=== PATIENT | male | born 1950 | race Caucasian/White ===

== ENCOUNTER → 2016-07-06 | Outpatient (CLI) | payer BC ==
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
== END | disposition home or self-care (01) ==
LOC: SLEEP 11:09
PROVIDERS: ATTEND Internal Medicine
DX: G47.33 Obstructive sleep apnea (adult) (pediatric) (principal); I48.92 Unspecified atrial flutter; I10 Essential (primary) hypertension; E78.5 Hyperlipidemia, unspecified; Z79.899 Other long term (current) drug therapy; E66.9 Obesity, unspecified; Z68.41 Body mass index [BMI] 40.0-44.9, adult

== ENCOUNTER 2016-07-07 16:45 | Emergency (ER) | payer BC, OTHER ==
[2016-07-07] MEDS ORDERED: DIPH,PERTUS(ACELL)TETVAC-LF 0.5 ML VIAL IM ONE (17:34)
[2016-07-07] MEDS ORDERED: AMOXIC-POT CLAV 875-125MG 1 EACH TAB PO STA (17:34)
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
[2016-07-07 17:55] VITALS: BP 139/93; PULSE 80; RESP 14; TEMP 98
== END 2016-07-07 18:16 | disposition home or self-care (01) ==
LOC: EC 16:45
DX: S51.851A Open bite of right forearm, initial encounter (principal); Z23 Encounter for immunization; Z88.2 Allergy status to sulfonamides; Z88.8 Allergy status to other drugs, medicaments and biological substances; Z79.82 Long term (current) use of aspirin; Z79.899 Other long term (current) drug therapy; W50.3XXA Accidental bite by another person, initial encounter; Y93.89 Activity, other specified
CPT/HCPCS: 90471; 90715; 99283

== ENCOUNTER → 2016-10-05 | Outpatient (CLI) | payer BC ==
--- NOTE | 2016-10-06 09:19 | PN ---
PROGRESS NOTE Date of Service: A 56-year-old gentleman has been followed in the Sleep Center for treatment of obstructive sleep apnea-hypopnea syndrome. Recently, patient had diagnostic sleep study and CPAP titration and I discussed results of sleep studies with patient in detail. He has extremely severe obstructive sleep apnea-hypopnea syndrome with oxygen desaturation to 61%. Presently, patient is on treatment with BiPAP and he was started on treatment with BiPAP with a pressure of 14/10, then he had difficulties with tolerating the pressure and pressure was decreased to 12/8 cm of water. I checked reading from his machine and it showed that the patient demonstrated 100% compliance with the treatment using daily it every night more than 4 hours. Average usage is 7 hours and 5 minutes. Apnea- hypopnea index by the reading for the last month showed 2.9 per hour, which is a totally normal range. [place] Sleepiness Scale today is 1. MEDICATIONS: Simvastatin, metoprolol, lisinopril, aspirin. PHYSICAL EXAM: Patient in no distress. BP 131/90, HR 88, RR 16, weight 249, temp 97.8. Oxygen saturation at room air 96%. HEART: S1-S2 irregularly irregular. ABDOMEN: Obese. LUNGS Clear to percussion and to auscultation. Good air exchange. No wheezing or rhonchi. EXTREMITIES No clubbing or cyanosis. ALLERGY AND IMMUNOLOGY CHIEF Awake, alert, and oriented X3. Cranial nerves 2 to 7 intact. There is no fasciculation or atrophy. noted. No focal deficits observed. IMPRESSION: 1. Severe obstructive sleep apnea-hypopnea syndrome, apnea-hypopnea index 54.5, with oxygen desaturation to 61% on control with BiPAP at 12/8 cm of water. Patient demonstrated 100% compliance with treatment benefiting from treatment. 2. Obesity. 3. Atrial flutter. 4. Hypertension. 5. Hyperlipidemia. 6. History of sepsis in the past. 7. Status post cardiac ablation procedure several times for flutter. PLAN: 1. Continue treatment with BiPAP every night for the whole night. 2. 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 3. Losing weight. 4. Sleep hygiene with regular time in bed for least 8 hours. 5. No driving if feeling sleepiness. Patient is aware about civil and criminal liability for unsafe driving. Thank you very much for allowing me participate in the management of your patient. Sincerely, Taco Diaz MD, PhD, FAASM Diplomat of [place] [employer] [place] [employer] Bowling Ball Mold Assembler of [facility] [place] JUSTINA / HENRIETTA: [id number] /
== END | disposition home or self-care (01) ==
LOC: SLEEP 13:20
PROVIDERS: ATTEND Internal Medicine
DX: G47.33 Obstructive sleep apnea (adult) (pediatric) (principal); E66.9 Obesity, unspecified; I48.92 Unspecified atrial flutter; I10 Essential (primary) hypertension; E78.5 Hyperlipidemia, unspecified; Z86.19 Personal history of other infectious and parasitic diseases; Z98.890 Other specified postprocedural states; Z79.899 Other long term (current) drug therapy; Z79.82 Long term (current) use of aspirin

== ENCOUNTER 2016-11-16 07:05 | Outpatient (CLI) | payer BC ==
--- NOTE | 2016-11-23 15:04 | SLS ---
SLEEP STUDY DATE OF SERVICE: 11/16/2016. PROCEDURE: Maintenance of wakefulness test date 11/16/2016. Maintenance of wakefulness test done for objective evaluation of patient alertness. 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 The patient has severe obstructive sleep apnea-hypopnea syndrome with apnea-hypopnea index 54.5. Maintenance of wakefulness test consisted from 4 trials by 40 minutes. The patient did not fall asleep on any trial. IMPRESSION: 1. Severe obstructive sleep apnea-hypopnea syndrome. The patient demonstrated good compliance with treatment. 2. Maintenance of wakefulness test showed normal alertness during the day. Patient did not fail on any trial. Passed the test. PLAN: 1. Continue treatment with BiPAP every night for the whole night. 2. I will see patient for followup visit to explain results of the test and recommendations. 3. 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 Thank you very much for allowing me to participate in management of your patient. Sincerely, Taco Diaz MD, PhD, FAASM Diplomat of [place] [employer] [place] Board of Internal Medicine Technologist Infectious Disease of [facility] [place] MMODL / ALECIAN: [id number] /
== END 2016-11-16 15:05 | disposition home or self-care (01) ==
LOC: SLEEP 07:05
PROVIDERS: ATTEND Internal Medicine
DX: G47.33 Obstructive sleep apnea (adult) (pediatric) (principal)
CPT/HCPCS: 80306; 95805

== ENCOUNTER → 2017-08-23 | Outpatient (CLI) | payer BC ==
--- NOTE | 2017-08-23 11:43 | SFUN ---
SLEEP CENTER FOLLOW UP NOTE DATE OF SERVICE: 08/23/2017. A 67-year-old gentleman who has been followed in Sleep Center for treatment of severe obstructive sleep apnea-hypopnea syndrome. The apnea-hypopnea index 54. 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 Patient continues to use his BiPAP equipment every night without any significant problems. No snoring with the machine. No symptoms of excessive daytime sleepiness. [place] Sleepiness Scale is 2. In November of 2016, patient had maintenance of wakefulness test and he passed the test with 4 trials. He did not fall asleep. He was on treatment with BiPAP at that time already. I checked BiPAP unit. BiPAP pressure is 12/8 cm of water. Usage is 100% of the time for the last month every 6.6 hours. For the last 6 months, usage is 7 hours per night and usage is 180 nights. Leak is 14 L/minute, which is acceptable. Apnea-hypopnea index reading for the last 6 months 1.3, last month 1.1. The patient has about the same weight 249 pounds today comparing with the weight when we did the titration. MEDICATIONS: Simvastatin, metoprolol, lisinopril, aspirin. PHYSICAL EXAM: Patient in no distress. BP 111/79, HR 87, RR 18. Height 5 feet 6 inches, weight 249, BMI 40.1, temp 97.4, oxygen saturation at room air 96%. OROPHARYNX: Moderately to extremely low position of soft palate. ABDOMEN: Obese. 1+ very minimal bilateral ankle edema. HEENT PERRLA, EOMI, evaluation of oropharynx showed tongue protrudes midline. Neck Supple, no JVD. Thyroid is not palpable. LUNGS Clear to percussion and to auscultation. Good air exchange. No wheezing or rhonchi. HEART S1, S2 regular. No murmurs, gallops, or rubs. EXTREMITIES No clubbing or cyanosis. DELIVERY ANALYST Awake, alert, and oriented X3. Cranial nerves 2 to 7 intact. There is no fasciculation or atrophy noted. No focal deficits observed. IMPRESSION: 1. Severe obstructive sleep apnea-hypopnea syndrome on full control with BiPAP 12/8 cm of water. Patient demonstrated 100% compliance with treatment. I checked compliance for last 6 months. Average usage is 7 hours per night. Normal respiration on BiPAP. No symptoms of excessive daytime sleepiness. Half a year ago, patient passed maintenance of wakefulness test. 2. Obesity. 3. Hypertension. 4. Hyperlipidemia. 5. History of sepsis in the past. 6. Status post cardiac ablation several times for flutter in the past, this is normal. PLAN: 1. Patient will continue to use BiPAP equipment every night for the whole night. 2. Patient will continue followups with ditch inspector. 3. Sleep hygiene with regular time in bed for at least 7.5 - 8 hours. 4. 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 No driving if feeling sleepiness. Patient is aware about civil and criminal liability for unsafe driving. Promise to follow up recommendations. 5. Losing weight. 6. Prescription for all necessary BiPAP supplies, including mask, tube. Sincerely, Taco Diaz MD, PhD, FAASM Diplomat of [place] [employer] [place] [employer] Medicine Customer Account Manager of [facility] [place] MMODL / ALECIAN: [id number] /
== END | disposition home or self-care (01) ==
LOC: SLEEP 09:49
PROVIDERS: ATTEND Internal Medicine
DX: G47.33 Obstructive sleep apnea (adult) (pediatric) (principal); I10 Essential (primary) hypertension; E78.5 Hyperlipidemia, unspecified; E66.9 Obesity, unspecified; Z68.41 Body mass index [BMI] 40.0-44.9, adult; Z86.19 Personal history of other infectious and parasitic diseases; Z79.899 Other long term (current) drug therapy; Z79.82 Long term (current) use of aspirin; Z98.890 Other specified postprocedural states

== ENCOUNTER → 2019-04-17 | Outpatient (CLI) | payer BC, MEDICARE ==
--- NOTE | 2019-04-17 12:01 | SFUN ---
SLEEP CENTER FOLLOW UP NOTE DATE OF SERVICE: 04/17/2019 This is a 68-year-old gentleman who has been followed in Sleep Center for treatment of obstructive sleep apnea-hypopnea syndrome. The patient continued to have his equipment every night for the whole night, getting all his supplies in time. No snoring with the machine. 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 No sleepiness during the day. [place] Sleepiness Scale today is 1. The patient lost weight from 260 pounds last year to 221.6 pounds now. I checked his BiPAP unit. BiPAP pressure 12/8 cm of water. Usage is 100% of nights. The patient used 365 out of 365 nights for the last year and 337 nights more than 4 hours with average use of 6 hours per night. Leak is 25 L/minute, which is acceptable. Apnea-hypopnea index is only 1.2, which is normal. MEDICATIONS: Flomax, , simvastatin, metoprolol, lisinopril. PHYSICAL EXAMINATION: During physical exam, patient in no distress. VITAL SIGNS: BP 116/73, HR 88, RR 16, height 5 feet 6-1/4 inches, weight 221.6, body mass index 35.4, temperature 97.0, oxygen saturation at room air 95% HEENT: PERRLA, EOMI. Oropharynx low position of soft palate, Mallampati 3. NECK: Supple, no JVD. Thyroid is not palpable. LUNGS: Clear to percussion and to auscultation. Good air exchange. No wheezing or rhonchi. HEART: S1, S2 with some irregularities. ABDOMEN: Slightly obese. EXTREMITIES: No clubbing or cyanosis. FOOD AND BEVERAGE INTERN: Awake, alert, and oriented X3. Cranial nerves 2 to 7 intact. There is no fasciculation or atrophy. noted. No focal deficits observed. IMPRESSION: 1. Severe obstructive sleep apnea-hypopnea syndrome with apnea-hypopnea index 54. The patient demonstrated 100% compliance with treatment benefitting from treatment, normal respiration on treatment with BiPAP. No symptoms of excessive daytime sleepiness. 2. Obesity, patient lost about 40 pounds since previous visit. 3. Hypertension. 4. Hyperlipidemia. 5. Status post cardiac ablation several times for atrial flutter. 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 PLAN: 1. Patient will continue to use BiPAP equipment every night for the whole night. 2. Continue losing weight. 3. Sleep hygiene with regular time in bed 7-1/2 and 8 hours. 4. Precautions related to driving. No driving if feeling sleepiness. Patient is aware about civil and criminal liability for unsafe driving. 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 Thank you very much for allowing me to participate in management of your patient. Sincerely, Taco Diaz MD, PhD, FAASM Diplomat of [place] [employer] Specialties [employer] Board of Internal Medicine Tone Regulator of [facility] [place] MMODL / ALECIAN: [id number] / DOT
== END | disposition home or self-care (01) ==
LOC: SLEEP 10:37
PROVIDERS: ATTEND Internal Medicine
DX: G47.33 Obstructive sleep apnea (adult) (pediatric) (principal); E66.9 Obesity, unspecified; I10 Essential (primary) hypertension; E78.5 Hyperlipidemia, unspecified; Z98.890 Other specified postprocedural states; Z99.89 Dependence on other enabling machines and devices; Z68.35 Body mass index [BMI] 35.0-35.9, adult; Z79.899 Other long term (current) drug therapy

== ENCOUNTER → 2019-08-04 | Outpatient (CLI) | payer BC, MEDICARE ==
[2019-08-04 18:13] LABS: African American GFR (CKD) 59.8 (60.0-200.0); Anion Gap 7.4 mmol/L (4.00-12.00); BUN/Creat Ratio 23.57 Ratio (12.00-20.00); Calcium 9.4 mg/dL (8.7-10.3); Carbon Dioxide 23.6 mmol/L (21.6-31.8); Chol/HDL Ratio 3.08; Non-African American GFR(CKD) 51.6 (60.0-200.0); Potassium 4.7 mmol/L (3.5-5.5)
== END | disposition home or self-care (01) ==
LOC: LABWHC1 09:35
PROVIDERS: ATTEND Physician Assistant
DX: I10 Essential (primary) hypertension (principal); E78.2 Mixed hyperlipidemia
CPT/HCPCS: 36415; 80048; 80061

== ENCOUNTER → 2019-11-27 | Outpatient (CLI) | payer MEDICARE, BC ==
--- NOTE | 2019-11-27 16:05 | SFUN ---
SLEEP CENTER FOLLOW UP NOTE DATE OF SERVICE: 11/27/2019 A 69-year-old gentleman who has been followed in the Sleep Center for treatment of obstructive sleep apnea-hypopnea syndrome. The patient continues to use his BiPAP equipment every night for the whole night. Feels well during the day. Does not feel sleepiness. [place] Sleepiness Scale is 1. Sometimes he has leak from his nasal pillow mask. He is using a medium size. May feel some discomfort on the left side. MEDICATIONS: [QAMARKER], simvastatin, lisinopril, metoprolol, Flomax, Xarelto. Patient does not have dosage of medication. I discussed with him the necessity to recheck all dosage of medications following Medicare requirements. PHYSICAL EXAM: Patient in no distress, BP 125/70, HR 86, RR 16, height 5 feet 6-1/2 inches, weight 224, BMI 35.6, temperature 97.7, oxygen saturation from 96% oropharynx low position of soft palate. Mallampati III. ABDOMEN: Obese. NECK: Supple, no JVD. Thyroid is not palpable. LUNGS: Clear to percussion and to auscultation. Good air exchange. No wheezing or rhonchi. HEART: S1, S2 regular. No murmurs, gallops, or rubs. EXTREMITIES: No clubbing or cyanosis. FEED PREPARATION OPERATOR: Awake, alert, and oriented X3. Cranial nerves 2 to 7 intact. There is no fasciculation or atrophy. noted. No focal deficits observed. I checked the patient BiPAP unit, pressure 12/8 cm of water, usage 30/30 nights for more than 4 hours. Average usage is 6.3 hours per night, which is great compliance. Leak is 28 L/minutes which is slightly high. Apnea-hypopnea index from the 1.0, which is perfect. IMPRESSION: 1. Obstructive sleep apnea-hypopnea syndrome. Patient demonstrated 100% compliance with treatment, benefitting from treatment. No symptoms of excessive daytime sleepiness. Normal respiration on CPAP. 2. Slight leak from CPAP, nasal pillow mask. The patient should replace his nasal pillow every month. 3. Obesity. 4. Hypertension. 5. Hyperlipidemia. 6. Status post cardiac ablation several times for atrial flutter. 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 Sleep hygiene with regular time in bed for at least 7-1/2 to 8 hours. 2. Extreme precautions related to driving. No driving if feeling sleepiness. Patient is aware about civil and criminal liability for unsafe driving. 3. Patient may use AYR gel through to the nostrils with the nasal pillows. Thank you very much for allowing me to participate in the management of your patient. Sincerely, Taco Diaz MD, PhD, FAASM Diplomat of [place] [employer] Specialties [place] Board of Internal Medicine Social Services Aide of [facility] [place] MMODL / ALECIAN: [id number] /
== END | disposition home or self-care (01) ==
LOC: SLEEP 10:56
PROVIDERS: ATTEND Internal Medicine
DX: G47.33 Obstructive sleep apnea (adult) (pediatric) (principal); E66.9 Obesity, unspecified; I10 Essential (primary) hypertension; E78.5 Hyperlipidemia, unspecified; Z86.79 Personal history of other diseases of the circulatory system; Z99.89 Dependence on other enabling machines and devices

== ENCOUNTER → 2020-07-22 | Outpatient (CLI) | payer MEDICARE, BC ==
--- NOTE | 2020-07-22 23:31 | SFUN ---
SLEEP CENTER FOLLOW UP NOTE DATE OF SERVICE: 07/22/2020 70-year-old gentleman has been followed in Sleep Center for treatment of obstructive sleep apnea-hypopnea syndrome. Patient continued to use his equipment every night for the whole night, he feels well with the machine. He sleeps well and feels well during the day. Denied any significant excessive daytime sleepiness. [place] Sleepiness Scale today is 1. I checked the patient BiPAP unit. Pressure is 12/8 cm of water. Usage is every night and / nights for more than 4 hours. Leak is 22 L/minute which is borderline, but apnea-hypopnea index is totally normal only 1.2. MEDICATIONS: 7 mg once a day, tamsulosin 0.4 mg once a day, lisinopril 10 mg once a day, simvastatin 40 mg once a day, metoprolol 50 mg once a day. Xarelto 20 mg once a day. Metformin 1000 mg a day, Basaglar insulin 22 units. PHYSICAL EXAMINATION: GENERAL: Patient in no distress. BP 123/81, HR 90, RR 15, height 5 feet 6 inches, weight 236.0, temperature 98.4, oxygen saturation at room air 97%. Oropharynx: Low position of soft palate, Mallampati 3. NECK: Supple, no JVD. Thyroid is not palpable. LUNGS: Clear to percussion and to auscultation. Good air exchange. No wheezing or rhonchi. HEART: S1, S2 regular. No murmurs, gallops, or rubs. ABDOMEN: Obese. Soft and nontender. Bowel sounds are present. No organomegaly appreciated. EXTREMITIES: No clubbing or cyanosis. PROOF SORTER: Awake, alert, and oriented X3. Cranial nerves 2 to 7 intact. There is no fasciculation or atrophy. noted. No focal deficits observed. IMPRESSION: 1. Obstructive sleep apnea-hypopnea syndrome. Patient demonstrates 100% compliance with treatment and benefitting from treatment. Normal respiration on CPAP. 2. Obesity. 3. Hypertension. 4. Hyperlipidemia. 5. Status post cardiac ablations several times for atrial flutter. 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 Patient will continue to use PAP equipment every night for the whole night. 2. Sleep hygiene with regular time in bed for at least 7-1/2 to 8 hours. 3. Precautions related to driving. No driving if feeling sleepiness. Patient is aware about civil and criminal liability for unsafe driving. He promised to follow all recommendations. 4. I will maintain all necessary prescription for PAP supplies including mask, tube, filters. 5. Watching weight. 6. Follow-up visit in 6 months or earlier if patient has any problems. Thank you very much for allowing me to participate in management of your patient. Sincerely, Taco Diaz MD, PhD, FAASM Diplomat of [place] [employer] Special[employer] Board of Internal Medicine Plant Maintenance Mechanic of [facility] [place] MMODL / ALECIAN: [id number] /
== END ==
LOC: SLEEP 10:40
PROVIDERS: ATTEND Internal Medicine
DX: G47.33 Obstructive sleep apnea (adult) (pediatric) (principal); E66.9 Obesity, unspecified; I10 Essential (primary) hypertension; E78.5 Hyperlipidemia, unspecified; Z98.890 Other specified postprocedural states; Z99.89 Dependence on other enabling machines and devices; Z88.2 Allergy status to sulfonamides; Z88.8 Allergy status to other drugs, medicaments and biological substances

== ENCOUNTER → 2021-01-19 | Outpatient (CLI) | payer MEDICARE, BC ==
--- NOTE | 2021-01-19 22:23 | SFUN ---
SLEEP CENTER FOLLOW UP NOTE DATE OF SERVICE: 01/19/2021 70-year-old gentleman has been followed in Sleep Center for treatment of obstructive sleep apnea-hypopnea syndrome. The patient continues to use his BiPAP equipment every night for the whole night. Sleeps well with the machine. Gets his supplies in time. No sleepiness during the day. [place] Sleepiness Scale is 4. I checked his BiPAP unit. Pressure is 12/8 cm of water. Usage is 100% of nights more than 4 hours, average 6.3 hours per night. Leak is slightly increased 32 L/minute. Apnea-hypopnea index absolutely perfect 0.9. The patient feels that his pressure sometimes a little bit too high for him. MEDICATIONS: Tamsulosin 0.4 mg once a day, lisinopril 10 mg once a day, simvastatin 40 mg once a day, metoprolol 50 mg once a day. Xarelto 20 mg once a day. Metformin 1000 mg a day. Insulin Basaglar 22 units. PHYSICAL EXAMINATION: GENERAL: Patient in no distress. BP 131/88, HR 79, RR 15, height 5 feet 6 inches, weight 237.6. Oxygen saturation at room air 97%, temperature 97.4, body mass index 38.6. Oropharynx: Low position of soft palate, Mallampati 3. NECK: Supple, no JVD. Thyroid is not palpable. LUNGS: Clear to percussion and to auscultation. Good air exchange. No wheezing or rhonchi. HEART: S1, S2 regular. No murmurs, gallops, or rubs. ABDOMEN: Obese. Soft and nontender. Bowel sounds are present. No organomegaly appreciated. EXTREMITIES: No clubbing or cyanosis. ILLUSTRATOR SET: Awake, alert, and oriented X3. Cranial nerves 2 to 7 intact. There is no fasciculation or atrophy. noted. No focal deficits observed. IMPRESSION: 1. Obstructive sleep apnea-hypopnea syndrome, patient demonstrated 100% compliance with treatment. Normal respiration on BiPAP, benefitting from treatment. 2. Hypertension. 3. Hyperlipidemia. 4. Obesity. 5. Status post cardiac ablation several times for atrial flutter. 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 Slightly decreased pressure in BiPAP unit to 11/7 cm of water. 2. Patient will continue to use PAP equipment every night for the whole night. 3. Sleep hygiene with regular time in bed for at least 7-1/2 to 8 hours. 4. Precautions related to driving. No driving if feeling sleepiness. 5. I will maintain all necessary prescription for PAP supplies including mask, tube, filters. 6. Watching weight. 7. Follow-up visit in 6 months or earlier if patient has any problems. Thank you very much for allowing me to participate in management of your patient. Sincerely, Taco Diaz MD, PhD, FAASM Diplomat of [employer] Sleep Medicine Board of [employer] [facility] [place] MMODL / ALECIAN: [id number] /
== END | disposition home or self-care (01) ==
LOC: SLEEP 10:45
PROVIDERS: ATTEND Internal Medicine
DX: G47.33 Obstructive sleep apnea (adult) (pediatric) (principal); I10 Essential (primary) hypertension; E78.5 Hyperlipidemia, unspecified; E66.9 Obesity, unspecified; Z68.38 Body mass index [BMI] 38.0-38.9, adult

== ENCOUNTER → 2022-01-18 | Outpatient (CLI) | payer MEDICARE, BC ==
--- NOTE | 2022-01-18 12:06 | P.PN ---
Subjective DATE: 01/18/2022 FOLLOW UP VISIT. Patient with obstructive sleep apnea hypopnea syndrome return to sleep center for follow-up visit. Information from previous visit have been reviewed. Patient is using BPAP equipment every night for the whole night, getting BPAP supplies in time. The patient does not have significant problems with the mask, BPAP unit and humidification. [place] sleepiness scale is 1, which is perfect. I checked information from BPAP unit. BPAP unit pressure 11/7 cm H2O. Usage is 100 % for more then 4 hours, average 6 hours per night. Leak is 13.3 l/m, which is in acceptable range. Apnea Hypopnea Index is 0.7, which is perfect. MEDICATIONS:1. Lisinopril 10 mg once a day 2. Metoprolol 50 mg once a day 3. Rosuvastatin 20 mg once a day 4. Xarelto 20 mg once a day 5. Rybelsus 14 mg once a day During physical exam: GENERAL: A pleasant patient without any distress. VITAL SIGNS: BP 117/78, HR 70, RR 16 , weight 238, height 5 foot 6 inches, body mass index 38.4 temperature 97.7, oxygen saturation at room air 96 % . HEENT: PERRLA, EOMI.low position of soft palate, Mallapati 3 . NECK: Supple. No JVD. LUNGS: Clear to percussion and to auscultation. Good air exchange. No wheezing or rhonchi. HEART: S1, S2 regular. ABDOMEN: Soft and nontender. Obese EXTREMITIES: No clubbing or cyanosis. 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 No focal deficit. Impressions: 1. Obstructive sleep apnea-hypopnea syndrome. Patient demonstrated great compliance with treatment, benefiting from treatment. 2. Obesity body mass index 38.4. 3. Hypertension. 4. Hyperlipidemia. 5. 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 Continue using PAP equipment every night for the whole night. 2. To change air filter at least 1-2 times per month. 3. PAP unit should stay lower then position of the head. 4. Advised patient to remove all remaining water from humidifier canister daily and make it dry after each usage. Refill canister with fresh distilled water before each usage. Presently patient prefers not to use heated humidity. 5. Sleep hygiene with regular time in bed for at least 8 hours. 6. Precautions related to driving. No driving if feel any sleepiness. 7. I will maintain prescription for PAP supplies including mask, tube, filters. 8. Follow up visit in 6 months or earlier if patient has any problems. 9. Watching and losing weight. Thank you very much for allowing me to participate in the management of your patient. Taco Diaz MD, PhD, FAASM. Diplomat of [employer], Sleep Medicine Board by [employer] Quality Control Coordinator of [facility] [place]
== END ==
LOC: SLEEP 10:47
PROVIDERS: ATTEND Internal Medicine
DX: G47.33 Obstructive sleep apnea (adult) (pediatric) (principal); Z99.89 Dependence on other enabling machines and devices; E66.9 Obesity, unspecified; Z68.38 Body mass index [BMI] 38.0-38.9, adult; I10 Essential (primary) hypertension; E78.5 Hyperlipidemia, unspecified; Z98.890 Other specified postprocedural states; Z88.2 Allergy status to sulfonamides; Z88.8 Allergy status to other drugs, medicaments and biological substances
CPT/HCPCS: 99212

== ENCOUNTER → 2022-07-26 | Outpatient (CLI) | payer MEDICARE, BC ==
--- NOTE | 2022-07-26 10:59 | P.PN ---
Subjective DATE: 07/26/2022 FOLLOW UP VISIT. Patient with obstructive sleep apnea hypopnea syndrome return to sleep center for follow-up visit. Information from previous visit have been reviewed. Patient is using PAP equipment every night for the whole night, getting PAP supplies in time. The patient does not have significant problems with the mask, PAP unit and humidification. [place] sleepiness scale is 2, which is normal. I checked information from BPAP unit. BPAP unit pressure is 11/7 cm H2O. Usage is 100 % for more then 4 hours, average 6.5 hours per night. Leak is 21.6 l/m, which is in acceptable range. Apnea Hypopnea Index is 0.8, which is normal. MEDICATIONS:1. Lisinopril 10 mg in the morning, 5 mg at night 2. Metoprolol 50 mg once a day 3. Xarelto 20 mg once a day 4. Rosuvastatin 20 mg once a day 5. Rubelsus 40 mg once a day 6. Insulin During physical exam: GENERAL: A pleasant patient without any distress. VITAL SIGNS: BP 125/81, HR 82, RR 16, weight 238, temperature 97.7, oxygen saturation at room air 97 % . HEENT: PERRLA, EOMI.low position of soft palate, Mallapati 3 . NECK: Supple. No JVD. LUNGS: Clear to percussion and to auscultation. Good air exchange. No wheezing or rhonchi. HEART: S1, S2 . Irregularly irregular. ABDOMEN: Soft and nontender. Slightly obese EXTREMITIES: No clubbing or cyanosis. SKIN PILER: Awake, alert, and oriented x3. No focal deficit. Impressions: 1. Obstructive sleep apnea-hypopnea syndrome. Patient demonstrated great compliance with treatment, benefiting from treatment. 2. Diabetes mellitus, hemoglobin A1c according to patient 6.9. 3. Hypertension. 4. Obesity, BMI in the range of 38, weight is the same as during previous visit. 5. 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 Irregular rhythm at the present time possibly atrial fibrillation. 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 Continue using PAP equipment every night for the whole night. 2. To change air filter at least 1-2 times per month. 3. PAP unit should stay lower then position of the head. 4. Advised patient to remove all remaining water from humidifier canister daily and make it dry after each usage. Refill canister with fresh distilled water before each usage. 5. Sleep hygiene with regular time in bed for at least 8 hours. 6. Precautions related to driving. No driving if feel any sleepiness. Patient is aware about civil and criminal liability for unsafe driving. 7. I will maintain prescription for PAP supplies including mask, tube, filters. 8. Watching and losing weight. 9. Follow up visit in 6 months or earlier if patient has any problems. Thank you very much for allowing me to participate in the management of your patient. Taco Diaz MD, PhD, FAASM. Diplomat of [employer], Sleep Medicine Board by [employer] Seismometer Operator of [facility] [place]
== END ==
LOC: 3 N SLEEP 10:30
PROVIDERS: ATTEND Internal Medicine
DX: G47.33 Obstructive sleep apnea (adult) (pediatric) (principal); E11.9 Type 2 diabetes mellitus without complications; I10 Essential (primary) hypertension; E66.9 Obesity, unspecified; Z68.38 Body mass index [BMI] 38.0-38.9, adult; Z79.4 Long term (current) use of insulin; Z79.899 Other long term (current) drug therapy; Z86.79 Personal history of other diseases of the circulatory system; Z99.89 Dependence on other enabling machines and devices; Z88.2 Allergy status to sulfonamides; Z88.8 Allergy status to other drugs, medicaments and biological substances
CPT/HCPCS: 99212

== ENCOUNTER → 2024-04-24 | Outpatient (CLI) | payer MEDICARE ==
[2024-04-24 11:57] VITALS: BP 111/79; PULSE 72; RESP 16; TEMP 97.2
--- NOTE | 2024-04-24 12:23 | P.PROGSL ---
Subjective DATE: 04/24/2024 FOLLOW UP VISIT. Patient with obstructive sleep apnea hypopnea syndrome return to sleep center for follow-up visit. Information from previous visit have been reviewed. Patient is using PAP equipment every night for the whole night, getting PAP supplies in time. The patient does not have significant problems with the mask, PAP unit and humidification. [place] sleepiness scale is 1. I checked information from PAP unit. BPAP unit pressure 11/7 cm H2O. Usage is 100% for more then 4 hours, average 7 hours per night. Leak is 22 l/m, which is in acceptable range. Apnea Hypopnea Index is 1.0, which is normal. MEDICATIONS have been reviewed, please see below. During physical exam: GENERAL: A pleasant patient without any distress. VITAL SIGNS: Please see below, weight is 209.4 lbs. HEENT: PERRLA, EOMI.low position of soft palate, Mallapati 3. NECK: Supple. No JVD. LUNGS: Clear to percussion and to auscultation. Good air exchange. No wheezing or rhonchi. HEART: S1, S2 regular. ABDOMEN: Soft and nontender.[] EXTREMITIES: No clubbing or cyanosis. UNIX ADMINISTRATOR: Awake, alert, and oriented x3. No focal deficit. Impressions: 1. Obstructive sleep apnea-hypopnea syndrome. Patient demonstrated great compliance with treatment, benefiting from treatment. 2. Mild obesity, patient lost 29 pounds comparing with previous visit. 3. Hypertension. 4. Diabetes mellitus, hemoglobin A1c in the range of 7.6 according to patient. 5. History of atrial flutter, status post cardiac ablation. 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 Continue using PAP equipment every night for the whole night. 2. Sleep hygiene with regular time in bed for at least 7.5-8 hours 3. PAP unit should stay lower then position of the head. 4. Advised patient to remove all remaining water from humidifier canister daily and make it dry after each usage. Refill canister with fresh distilled water before each usage. 5. Watching and losing weight. 6. Precautions related to driving. No driving if feel any sleepiness. 7. I will maintain prescription for PAP supplies including mask, tube, filters. 8. Follow up visit in 8 months or earlier if patient has any problems. Thank you very much for allowing me to participate in the management of your patient. Taco Diaz MD, PhD, FAASM. Diplomat of [place] [employer], Sleep Medicine Board by [employer] Partridge Farmer of [facility] [place] Objective - Vital Signs Vital Signs: Vital Signs Temp 97.2 F L 04/24/24 11:56 Pulse 72 04/24/24 11:56 Resp 16 04/24/24 11:56 BP 111/79 04/24/24 11:56 Pulse Ox 97 04/24/24 11:56 FiO2 Intake & Output 04/23/24 04/24/24 04/24/24 18:59 06:59 18:59 Weight 94.914 kg Home Medications: Home Medications Medication Instructions Recorded Confirmed Type Simvastatin [Zocor] 20 mg PO DAILY 11/12/14 07/07/16 History lisinopriL [Zestril] 5 mg PO BID 11/12/14 04/24/24 History Amoxicillin/Potassium Clav 1 each PO Q12HR #20 tab 07/07/16 Rx [Augmentin 875-125 Tablet] Aspirin EC [Ecotrin Low Dose] 81 mg PO DAILY 07/07/16 07/07/16 History Metoprolol Succinate (ER) [Toprol 25 mg PO DAILY 07/07/16 07/07/16 History Xl] Dapagliflozin Propanediol [Farxiga] 10 mg PO DAILY 04/24/24 04/24/24 History Pregabalin [Lyrica] 75 mg PO DAILY 04/24/24 04/24/24 History Rivaroxaban [Xarelto] 20 mg PO DAILY 04/24/24 04/24/24 History Rosuvastatin [Crestor] 20 mg PO DAILY 04/24/24 04/24/24 History Tamsulosin [Flomax] 0.4 mg PO DAILY 04/24/24 04/24/24 History Tirzepatide [Mounjaro] 10 mg SQ WEEKLY 04/24/24 04/24/24 History allopurinoL 100 mg PO DAILY 04/24/24 04/24/24 History
== END ==
LOC: 3 N SLEEP 11:27
PROVIDERS: ATTEND Internal Medicine
DX: G47.33 Obstructive sleep apnea (adult) (pediatric) (principal); E66.9 Obesity, unspecified; I10 Essential (primary) hypertension; E11.9 Type 2 diabetes mellitus without complications; Z86.79 Personal history of other diseases of the circulatory system; Z91.09 Other allergy status, other than to drugs and biological substances; Z88.2 Allergy status to sulfonamides
CPT/HCPCS: 99212